=== PATIENT | female | born 1995 | race Caucasian/White ===

== ENCOUNTER 2017-03-05 08:40 | Emergency (ER) | payer OTHER ==
[2017-03-05] MEDS ORDERED: ONDANSETRON INJ 4 MG/2 ML VIAL IV ONE (08:55)
[2017-03-05] MEDS ORDERED: HYDROmorphone HCL INJ 2 MG/ML VIAL IV ONE (08:55)
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
[2017-03-05] MEDS ORDERED: SODIUM CHLORIDE 0.9% 1000ML 1,000 ML IVS ONE (09:02)
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
[2017-03-05 11:52] VITALS: BP 114/82; O2SAT 99
[2017-03-05 11:54] VITALS: TEMP 97.9
== END 2017-03-05 11:07 | disposition home or self-care (01) ==
LOC: ER 08:40
DX: S20.219A Contusion of unspecified front wall of thorax, initial encounter (principal); S30.1XXA Contusion of abdominal wall, initial encounter; Z88.8 Allergy status to other drugs, medicaments and biological substances; V47.6XXA Car passenger injured in collision with fixed or stationary object in traffic accident, initial encounter; Y92.410 Unspecified street and highway as the place of occurrence of the external cause
CPT/HCPCS: 36415; 71260; 74177; 80053; 81001; 81025; 83690; 85025; J1170; J2405; J7030